=== PATIENT | male | born 1965 | race Caucasian/White ===

== ENCOUNTER → 2017-02-10 | Day surgery (SDC) | payer OTHER ==
[~2017-02-10] VITALS: Ht 177.8 cm; Wt 81.7 kg
[~2017-02-10] MED LIST: 0.9% Sodium Chloride 1,000 ML IV SCH; BUPR300T52 PO; CITA10TA9 PO; MULT-1018 PO; Sodium Chloride LOK Flush 10 mL Syringe IV PRN; fentaNYL-PF 50 mCg/mL 2 mL Inj IVPUSH PRN
[2017-02-10 15:04] VITALS: BP 123/75; PULSE 58; O2SAT 97
[2017-02-10 16:16] VITALS: BP 119/69; PULSE 64; RESP 14; O2SAT 94
[2017-02-10 16:26] VITALS: BP 115/69; PULSE 57; RESP 16; O2SAT 95
[2017-02-10 16:36] VITALS: BP 120/68; PULSE 64; RESP 16; O2SAT 97
--- NOTE | 2017-02-10 23:16 | ENDO ---
[address] [address] ENDOSCOPY PROCEDURE PATIENT: LISA MANZANARES : 1965 MR#: [id number] ADMIT: 02/10/2017 JOB ID: [id number] DATE OF PROCEDURE: 02/10/2017 PROCEDURE: Colonoscopy. INDICATION: Screening in patient with family history of colon cancer. Father was diagnosed with colon cancer at the age of 60. ANESTHESIA: The patient's ASA classification is II. Mallampati score is 2. MEDICATIONS: 1. Versed 5 mg. 2. Fentanyl 100 mcg. INSTRUMENT USED: [id number]. PREPARATION QUALITY: Was good. PROCEDURE DETAILS: After informed consent was obtained, the patient was brought into the GI suite, where he was placed on oxygen via nasal cannula and monitored with continuous pulse oximeter, telemetry, and blood pressure monitoring. A time-out was performed. Then, he was placed in the left lateral decubitus position and medications were administered for sedation. Digital rectal exam was performed which was unremarkable. The colonoscope was then inserted into the rectum and advanced under direct visualization to the cecum, which was identified by the presence of the ileocecal valve and appendiceal orifice. Once the cecum was reached, the colonoscope was withdrawn back into the rectum as the mucosa and lumen were examined. In the rectum, retroflexion was performed. Following retroflexion, remaining air in the rectum was suctioned, and procedure was completed. FINDINGS: Normal exam from rectum to cecum. IMPRESSION: Normal colonoscopy. RECOMMENDATIONS: Repeat colonoscopy in five years. COMPLICATIONS: None. ESTIMATED BLOOD LOSS: Zero.
== END | disposition home or self-care (01) ==
LOC: END 01:24
PROVIDERS: ATTEND Internal Medicine Gastroenterology
DX: Z12.11 Encounter for screening for malignant neoplasm of colon (principal); Z83.71 Family history of colonic polyps; F32.9 Major depressive disorder, single episode, unspecified; F41.9 Anxiety disorder, unspecified
CPT/HCPCS: G0105; G0500; J2250; J3010; J7030